=== PATIENT | male | born 1995 | race African-American/Black ===

== ENCOUNTER 2019-12-01 01:53 | Emergency (ER) | payer SELFPAY ==
[~2019-12-01] VITALS: Ht 170.2 cm; Wt 72.0 kg
[2019-12-01] MEDS: IPRATROPIUM BROMIDE (0.02%) 0.5MG/2.5ML NEB HHN STA ×2 (02:27→03:27)
[2019-12-01] MEDS: ALBUTEROL (0.083%) 2.5MG/3ML NEB HHN STA ×2 (02:27→03:27)
[2019-12-01] MEDS ORDERED: SODIUM CHLORIDE 0.9% 1,000 ML IV ONE (02:44)
[2019-12-01] MEDS ORDERED: ONDANSETRON HCL 4MG/2ML INJ IV STA (02:44)
[2019-12-01] MEDS ORDERED: ACETAMINOPHEN 325MG TABLET PO STA (02:44)
[2019-12-01] MEDS ORDERED: SODIUM CHLORIDE 0.9% 1000ML BAG (SEPSIS BOLUS) IV ONE (02:45)
[2019-12-01 03:15] LABS: CHLORIDE 100 mEq/L (98-107)
[2019-12-01 03:49] LABS: BASOPHILS % 0.5 % (0.0-2.0); HEMATOCRIT. 44.6 % (42.0-52.0); HEMOGLOBIN. 15.4 g/dL (14.0-18.0); MEAN CORPUSCULAR HEMOGLOBIN 29.6 pg (28.0-32.0); MEAN CORPUSCULAR VOLUME 85.8 fL (80.0-94.0); MEAN PLATELET VOLUME 8.8 fl (7.4-10.4); MONOCYTES % 8.3 % (2.0-8.0); NEUTROPHILS % 80.2 % (40.0-76.0); PLATELET 166 x1000/uL (130-400); RED CELL DISTRIBUTION WIDTH 14.9 % (11.6-14.6)
[2019-12-01 04:21] LABS: BG BASE EXCESS -8.9 mmol/L (-2.0-2.0); BG CARBOXYHEMOGLOBIN 0.4 % (0.5-1.5); BG DEOXYHEMOGLOBIN 4.9 % (0.0-5.0); BG FRACTION INSPIRED OXYGEN 21; BG HCO3 ACT 14.2 mmol/L (22.0-26.0); BG METHEMOGLOBIN 0.3 % (0.0-1.5); BG OXYGEN SATURATION 95.1 % (92.0-98.5); BG OXYHEMOGLOBIN 94.4 % (94.0-97.0); BG PCO2 24.4 mmHg (35.0-45.0); BG PH 7.384 (7.350-7.450); BG PO2 84.9 mmHg (75.0-100.0); BG SAMPLE SITE RIGHT RADIAL; BG TOTAL HEMOGLOBIN 13.7 g/dL (12.0-18.0); BG VENT MODE ROOM AIR
[2019-12-01 06:24] LABS: ETHANOL BLOOD < 10 mg/dL
[2019-12-01 10:09] LABS: *BARBITURATES SCREEN URINE NEGATIVE (NEGATIVE)
[2019-12-01 10:10] LABS: *AMPHETAMINES SCREEN URINE NEGATIVE (NEGATIVE); *BENZODIAZEPINES SCREEN URINE NEGATIVE (NEGATIVE); *COCAINE SCREEN URINE NEGATIVE (NEGATIVE); METHADONE URINE SCREEN NEGATIVE (NEGATIVE); OPIATES URINE SCREEN NEGATIVE (NEGATIVE); PHENCYCLIDINE URINE SCREEN NEGATIVE (NEGATIVE)
[2019-12-01 10:11] LABS: CANNABINOID URINE SCREEN NEGATIVE (NEGATIVE)
[2019-12-01] MEDS ORDERED: LORAZEPAM 1MG TABLET PO ONE (22:15)
[2019-12-02 11:36] LABS: CLARITY URINE CLEAR (CLEAR); COLOR URINE YELLOW (YELLOW); KETONES URINE NEGATIVE (NEGATIVE); LEUKOCYTE ESTERASE URINE NEGATIVE (NEGATIVE); NITRITE URINE NEGATIVE (NEGATIVE); OCCULT BLOOD URINE NEGATIVE (NEGATIVE); PH URINE 6.5 (4.5-8.0); PROTEIN URINE NEGATIVE (NEGATIVE); SPECIFIC GRAVITY URINE 1.021 (1.005-1.030)
[2019-12-02] MEDS ORDERED: LORAZEPAM 1MG TABLET PO ONE (15:15)
[2019-12-03] MEDS ORDERED: CLONIDINE 0.1MG TABLET PO ONE (07:00)
[2019-12-03 11:56] VITALS: BP 150/88
== END 2019-12-03 11:55 | disposition home or self-care (01) ==
LOC: ER 01:53
DX: R45.851 Suicidal ideations (principal); R07.89 Other chest pain; F33.3 Major depressive disorder, recurrent, severe with psychotic symptoms; F12.10 Cannabis abuse, uncomplicated
CPT/HCPCS: 36415; 36600; 71045; 80053; 80305; 80307; 80320; 80329; 81003; 82375; 82805; 83605; 85025; 87040; 87804; 93005; 96374; 99285; J2405; J7030; Z7610; G0480

== ENCOUNTER 2025-05-28 14:27 | Emergency (ER) | payer MEDICAID ==
[~2025-05-28] VITALS: Ht 177.8 cm; Wt 85.0 kg
[2025-05-28 14:33] VITALS: TEMP 36.9; O2SAT 96
[2025-05-28] MEDS ORDERED: CEPH500C2 MT (15:02)
[2025-05-28] MEDS ORDERED: IBUP-2028 MT (15:03)
[2025-05-28] MEDS: KETOROLAC 30MG/ML VIAL IM ONE (15:22)
[2025-05-28] MEDS: ACETAMINOPHEN 500MG TABLET PO ONE (15:23)
[2025-05-28 15:56] VITALS: BP 133/87; PULSE 92; RESP 16; O2SAT 100
== END 2025-05-28 15:59 | disposition home or self-care (01) ==
LOC: ER 14:27
DX: K08.89 Other specified disorders of teeth and supporting structures (principal); I10 Essential (primary) hypertension; F12.90 Cannabis use, unspecified, uncomplicated
CPT/HCPCS: 99283; 96372; J1885